=== PATIENT | male | born 1945 | race Caucasian/White ===

== ENCOUNTER 2019-01-28 20:11 | Emergency (ER) | payer BC, MEDICARE ==
[2019-01-28] MEDS ORDERED: Lidocaine 1% (PF) 30 ML VIAL ONE (20:24)
[2019-01-28] MEDS ORDERED: Adacel (T-DAP) 0.5 ML SYRINGE ONE (20:24)
[2019-01-28] MEDS ORDERED: Ketorolac Tromethamine 30 MG/ML VIAL ONE (20:29)
--- NOTE | 2019-01-28 21:27 | RAD ---
EXAM: 3 views of the great toe HISTORY: Toe pain after dropping a door on it COMPARISON: None FINDINGS: There is no evidence of acute fracture or dislocation. Moderate distal soft tissue swelling is seen. No degenerative changes are present. No radiopaque foreign body is seen. IMPRESSION: No evidence of acute osseous abnormality.
[2019-01-28] MEDS ORDERED: Bacitracin Zinc 1 Packet ONE (22:10)
== END 2019-01-28 22:17 | disposition home or self-care (01) ==
LOC: ERS 20:11
DX: S91.202A Unspecified open wound of left great toe with damage to nail, initial encounter (principal); S90.122A Contusion of left lesser toe(s) without damage to nail, initial encounter; I10 Essential (primary) hypertension; Z79.899 Other long term (current) drug therapy; W20.8XXA Other cause of strike by thrown, projected or falling object, initial encounter
CPT/HCPCS: 11750; 90471; 90715; 96372; J1885; J2001